=== PATIENT | male | born 1955 | race Two or more races ===

== ENCOUNTER 2019-02-20 08:42 | Outpatient (CLI) | payer OTHER | END 2019-02-20 08:45 | disposition home or self-care (01) | LOC: TOM 08:42 | DX: N30.00 Acute cystitis without hematuria (principal); R33.8 Other retention of urine | CPT/HCPCS: 74177; 76872; Q9965 ==

== ENCOUNTER 2019-08-07 09:30 | Inpatient (IN) | payer OTHER ==
[~2019-08-07] VITALS: Ht 188 cm; Wt 107.5 kg
[2019-08-07] MEDS ORDERED: NORVASC5 MG PO (11:36)
[2019-08-07] MEDS ORDERED: HYZAAR 100-12.1 EACH PO (11:36)
[2019-08-07] MEDS ORDERED: LOPID PO (11:36)
[2019-08-07] MEDS ORDERED: TAMS0.4C PO (11:36)
[2019-08-07] MEDS ORDERED: XANAX1 MG PO (11:37)
[2019-08-07] MEDS ORDERED: SEPTRA PO (11:37)
[2019-08-07] MEDS ORDERED: IRON (11:44)
[2019-08-12] MEDS ORDERED: IRON240 MG (08:41)
[2019-08-12] MEDS ORDERED: SULFAMETHOXAZO1 EACH (08:45)
[2019-08-12] MEDS ORDERED: GEMFIBROZIL600 MG PO (08:46)
== END 2019-08-14 10:19 | disposition home or self-care (01) | DRG 714 ==
LOC: O/R 08-12 06:35 → SURG 08-12 06:35 → SURH 08-12 08:30 → O/R 08-12 09:30 → SURH 08-12 09:30 → SURG 08-12 13:34
PROVIDERS: ADMIT Urology
PROC: 0VT08ZZ Resection of Prostate, Via Natural or Artificial Opening Endoscopic (ICD-10-PCS; principal; 2019-08-12 08:30)
DX: N40.1 Benign prostatic hyperplasia with lower urinary tract symptoms (principal); R33.8 Other retention of urine

== ENCOUNTER 2019-08-08 09:50 | Inpatient (IN) | payer OTHER ==
[~2019-08-08] VITALS: Ht 188 cm; Wt 104.3 kg
[~2019-08-08 09:50] MED LIST: HYZAAR 100-12.1 EACH PO; IRON; LOPID PO; NORVASC5 MG PO; SEPTRA PO; TAMS0.4C PO; XANAX1 MG PO
[2019-08-12] MEDS ORDERED: IRON240 MG (08:41)
[2019-08-12] MEDS ORDERED: SULFAMETHOXAZO1 EACH (08:45)
[2019-08-12] MEDS ORDERED: GEMFIBROZIL600 MG PO (08:46)
[2019-09-04] MEDS ORDERED: GEMFIBROZIL600 MG PO (09:41)
[2019-09-11] MEDS ORDERED: COZAAR100 MG PO (08:49)
[2019-09-11] MEDS ORDERED: LOSARTAN POTASS50 MG (08:49)
[2019-09-11] MEDS ORDERED: LOSARTAN-HCTZ1 EAC1 PO (08:52)
[2019-09-12] MEDS ORDERED: ULTRACET PO (13:40)
[2019-09-12] MEDS ORDERED: CARAFATE1 GM PO (13:41)
[2019-09-12] MEDS ORDERED: SIMETHICONE80 MG PO (13:41)
[2019-09-12] MEDS ORDERED: POLY119PG PO (13:42)
== END 2019-09-12 16:43 | disposition home or self-care (01) | DRG 328 ==
LOC: SURH 09-11 04:40 → O/R 09-11 04:40 → SURG 09-11 07:00 → SURH 09-11 13:25
PROVIDERS: ADMIT Surgery
PROC: 0WQF4ZZ Repair Abdominal Wall, Percutaneous Endoscopic Approach (ICD-10-PCS; 2019-09-11)
PROC: 0BUT4JZ Supplement Diaphragm with Synthetic Substitute, Percutaneous Endoscopic Approach (ICD-10-PCS; principal; 2019-09-11 07:00)
PROC: 0DS64ZZ Reposition Stomach, Percutaneous Endoscopic Approach (ICD-10-PCS; 2019-09-11 07:00)
DX: K44.9 Diaphragmatic hernia without obstruction or gangrene (principal); K42.9 Umbilical hernia without obstruction or gangrene

== ENCOUNTER 2023-09-21 07:35 | Inpatient (IN) | payer OTHER ==
[~2023-09-21] VITALS: Ht 188 cm; Wt 112.5 kg
[~2023-09-21 07:35] MED LIST changes: +CARAFATE1 GM PO; +COZAAR100 MG PO; +GEMFIBROZIL600 MG PO; +IRON240 MG; +LOSARTAN POTASS50 MG; +LOSARTAN-HCTZ1 EAC1 PO; +POLY119PG PO; +SIMETHICONE80 MG PO; +SULFAMETHOXAZO1 EACH; +ULTRACET PO
[2023-09-21 08:14] LABS: HEMATOCRIT 40.5 % (39.0-48.0); HEMOGLOBIN 13.7 g/dL (13-16.00); MEAN CELL VOLUME 86.5 fL (80.0-100.00); MEAN CORPUSCULAR HEMOGLOBIN 29.3 pg (27.00-32.0); MEAN CORPUSCULAR HGB CONC 33.9 g/dl (32.0-36.0); PLATELET COUNT 272 K/uL (150-450); RED BLOOD COUNT 4.68 M/uL (4.00-6.00); RED CELL DISTRIBUTION WIDTH 13.8 % (11.5-14.5)
[2023-09-21 08:30] LABS: INR 1.08; PARTIAL THROMBOPLASTIN TIME 32.4 SECONDS (22.0-34.0); PROTHROMBIN TIME 11.3 SECONDS (9.0-11.5)
[2023-09-21 08:33] LABS: CALCIUM 9.3 mg/dL (8.5-10.1); CREATININE SERUM 1.26 mg/dL (0.70-1.30); GFR 56.74; POTASSIUM 3.57 mEq/L (3.5-5.1)
[2023-09-21 08:53] LABS: PH,URINE 5.5 (5.0-8.0); URINE APPEARANCE Clear; URINE BILIRRUBIN Negative (NEGATIVE); URINE BLOOD Small; URINE COLOR Yellow; URINE GLUCOSE Negative (NEGATIVE); URINE LEUKOCYTE Negative; URINE NITRATE Negative; URINE PROTEIN Negative (NEGATIVE); URINE UROBILINOGEN 0.2 E.U./dl
[2023-09-21 08:57] LABS: URINE BACTERIA 12.5 uL (0.0-1933); URINE EPITHELIAL CELLS 6.1 uL (0.0-38.8); URINE RBC 81.9 uL (0.0-20.8)
[2023-09-29] MEDS ORDERED: ENOXAPARIN SODIUM 40 MG/0.4 ML SYRINGE SUBCUTANEO ONE ×2 (06:55→09:00)
[2023-09-29] MEDS ORDERED: CEFAZOLIN SODIUM 1,000 MG VIAL ONE ×2 (06:55→17:20)
[2023-09-29] MEDS ORDERED: ATORVASTATIN CA20 MG (07:57)
[2023-09-29] MEDS ORDERED: BUPROPION XL150 MG (07:57)
[2023-09-29] MEDS ORDERED: LOSARTAN-HCTZ1 EAC2 (07:57)
[2023-09-29] MEDS ORDERED: MAXIMUM D3325 MCG (07:57)
[2023-09-29] MEDS ORDERED: SERTRALINE HCL100 MG (07:57)
[2023-09-29] MEDS ORDERED: MEMANTINE HCL10 MG (07:57)
[2023-09-29] MEDS ORDERED: ALPRAZOLAM0.5 MG (07:57)
[2023-09-29] MEDS ORDERED: CEFAZOLIN SODIUM 1,000 MG in 0.9 % SODIUM CHLORIDE 50 ML IV ONE (09:00)
[2023-09-29] MEDS ORDERED: SUGAMMADEX SODIUM 200 MG/2 ML VIAL IV ONE ×2 (13:17→14:00)
[2023-09-29] MEDS ORDERED: DEXTROSE 5 %-0.45 % SOD CHLORD 1,000 ML IV SCH (17:08)
[2023-09-29] MEDS ORDERED: CEFAZOLIN SODIUM 1,000 MG VIAL IV SCH (17:08)
[2023-09-29] MEDS ORDERED: FAMOtidine 20 MG TABLET PO SCH (17:09)
[2023-09-29] MEDS ORDERED: DOCUSATE SODIUM 100MG CAP PO SCH (17:09)
[2023-09-29] MEDS ORDERED: SIMETHICONE 125 MG CAPSULE PO SCH (17:09)
[2023-09-29] MEDS ORDERED: ONDANSETRON HCL 2 MG/ML VIAL IV PRN (17:15)
[2023-09-29] MEDS ORDERED: MORPHINE SULFATE 2 MG/ML CARTRIDGE IV PRN (17:15)
[2023-09-29] MEDS ORDERED: ALPRAzolam 1 MG TABLET PO PRN (23:00)
[2023-09-30 06:29] LABS: HEMATOCRIT 38.6 % (39.0-48.0); HEMOGLOBIN 13.1 g/dL (13-16.00); MEAN CELL VOLUME 87.1 fL (80.0-100.00); MEAN CORPUSCULAR HEMOGLOBIN 29.5 pg (27.00-32.0); MEAN CORPUSCULAR HGB CONC 33.9 g/dl (32.0-36.0); PLATELET COUNT 267 K/uL (150-450); RED BLOOD COUNT 4.43 M/uL (4.00-6.00); RED CELL DISTRIBUTION WIDTH 13.9 % (11.5-14.5)
[2023-09-30 08:19] LABS: CREATININE SERUM 1.05 mg/dL (0.70-1.30); GFR 70.03; POTASSIUM 3.67 mEq/L (3.5-5.1)
[2023-09-30] MEDS ORDERED: AMLODIPINE BESYLATE 5 MG TABLET PO SCH (09:00)
[2023-09-30] MEDS ORDERED: ENOXAPARIN SODIUM 40 MG/0.4 ML SYRINGE SUBCUTANEO SCH (09:00)
[2023-09-30] MEDS ORDERED: LOSARTAN POTASSIUM 100 MG TABLET PO SCH (09:00)
== END 2023-09-30 20:50 | disposition home or self-care (01) | DRG 708 ==
LOC: SURH 09-29 05:00 → O/R 09-29 05:00 → SURG 09-29 07:45 → SURH 09-29 14:43
PROVIDERS: ADMIT Urology; ATTEND Urology
PROC: 8E0W0CZ Robotic Assisted Procedure of Trunk Region, Open Approach (ICD-10-PCS; 2023-09-29)
PROC: 0VT00ZZ Resection of Prostate, Open Approach (ICD-10-PCS; principal; 2023-09-29 08:45)
DX: C61 Malignant neoplasm of prostate (principal); Z20.822 Contact with and (suspected) exposure to COVID-19; N40.1 Benign prostatic hyperplasia with lower urinary tract symptoms
CPT/HCPCS: 55866; S2900